=== PATIENT | female | born 1985 | race Caucasian/White ===

== ENCOUNTER 2022-01-31 03:15 | Inpatient (IN) | payer MEDICAID ==
[~2022-01-31] VITALS: Ht 154.9 cm; Wt 57.0 kg
[2022-01-31 03:39] LABS: BASOPHILS % (AUTO) 0.5 % (0.0-2.0); EOSINOPHILS % (AUTO) 1.8 % (1.0-6.0); HEMATOCRIT 35.6 % (36-46); HEMOGLOBIN 11.7 g/dL (12.0-16.0); LYMPHOCYTES # (AUTO) 2.1 K/uL (1.0-4.8); LYMPHOCYTES % (AUTO) 24.5 % (22.0-44.0); MEAN CORPUSCULAR HEMOGLOBIN 25.9 pg (26.0-34.0); MEAN CORPUSCULAR HGB CONC 32.9 G/dL (31.0-37.0); MEAN CORPUSCULAR VOLUME 79 fL (80-100); MONOCYTES # (AUTO) 0.7 K/uL (0.1-1.0); NEUTROPHILS # (AUTO) 5.5 K/uL (1.8-7.7); NEUTROPHILS % (AUTO) 65.2 % (40.0-70.0); PLATELET COUNT (AUTO) 313 K/uL (150-450); RED BLOOD CELL COUNT(AUTO) 4.52 MIL/uL (4.00-5.20)
[2022-01-31 03:44] LABS: APPEARANCE,URINE CLEAR (CLEAR); BILIRUBIN,URINE NEGATIVE (NEGATIVE); GLUCOSE, URINE (UA) NEGATIVE (NEGATIVE); KETONES,URINE NEGATIVE (NEGATIVE); LEUKOCYTE ESTERASE ,URINE NEGATIVE (NEGATIVE); NITRATE,URINE NEGATIVE (NEGATIVE); OCCULT BLOOD,URINE LARGE (NEGATIVE); PH,URINE 7.5 (5.0-8.0); PROTEIN,URINE NEGATIVE (NEGATIVE); SPECIFIC GRAVITIY, URINE 1.009 (1.003-1.030); UROBILINOGEN,URINE <=1.0 mg/dL (<=1.0)
[2022-01-31 03:48] LABS: ANION GAP 9 mmol/L (8-16); CALCIUM, TOTAL 8.6 mg/dL (8.8-10.5); CARBON DIOXIDE 28 mmol/L (22-29); CHLORIDE 101 mmol/L (98-107); CREATININE 0.71 mg/dL (0.60-1.30); GLOMERULAR FILTR. RATE CALC > 60 mL/min (>60); GLUCOSE,RANDOM 145 mg/dL (70-110); POTASSIUM 3.6 mmol/L (3.5-5.1); SODIUM SERUM 138 mmol/L (136-145); UREA NITROGEN, BLOOD 9 mg/dL (7-18)
[2022-01-31 03:53] LABS: BACTERIA,URINE None Seen /HPF (None Seen); RBC,URINE 0-2 /HPF (0-2); SQUAMOUS EPITHELIAL CELL,UR Few /LPF (None Seen); WBC,URINE None Seen /HPF (0-5)
[2022-01-31 04:01] LABS: ALBUMIN 3.5 g/dL (3.4-5.0); ALKALINE PHOSPHATASE 56 U/L (46-116); ASPARTATE AMINOTRANSFERASE 13 U/L (15-37); BILIRUBIN,TOTAL 0.2 mg/dL (0.1-1.0); HCG,QUANTITATIVE < 1 mIU/mL (0-6); LIPASE 131 U/L (73-393); TOTAL PROTEIN, SERUM 7.3 g/dL (6.4-8.2)
[2022-01-31 04:12] LABS: ALANINE AMINOTRANSFERASE 21 U/L (12-78)
[2022-01-31] MEDS ORDERED: ONDANSETRON HCL 4 MG/2 ML VIAL IVP ONE (04:15)
[2022-01-31] MEDS ORDERED: KETOROLAC TROMETHAMINE 30 MG/ML VIAL IVP ONE (04:15)
[2022-01-31] MEDS ORDERED: SODIUM CHLORIDE 0.9% 100 ML ONE (05:22)
[2022-01-31] MEDS ORDERED: IOHEXOL 350 MG/ML 100 ML VIAL ONE (05:23)
[2022-01-31] MEDS ORDERED: PIPERACILLIN SODIUM/TAZOBACTAM 4.5 GM in DEXTROSE 5%-WATER 100 ML IV ONE (11:15)
[2022-01-31 11:57] LABS: COVID AG,FIA SOURCE NASAL SWAB
[2022-01-31] MEDS ORDERED: MAGNESIUM HYDROXIDE SUSPENSION 30 ML UDCUP PO PRN (13:30)
[2022-01-31] MEDS ORDERED: HYDROCODONE/ACETAMINOPHEN 5-325 MG TABLET PO PRN (13:30)
[2022-01-31] MEDS ORDERED: MORPHINE SULFATE 2 MG/ML SYRINGE IVP PRN (13:30)
[2022-01-31] MEDS ORDERED: ZOLPIDEM TARTRATE 5 MG TABLET PO PRN (13:30)
[2022-01-31] MEDS ORDERED: SODIUM CHLORIDE 0.9% 1,000 ML IV ONE (13:30)
[2022-01-31] MEDS ORDERED: BISACODYL 10 MG RECTAL RECTAL SUPPOSITORY PR PRN (13:30)
[2022-01-31] MEDS ORDERED: ACETAMINOPHEN 325 MG TABLET PO PRN (13:30)
[2022-01-31] MEDS: HEPARIN SODIUM,PORCINE 5,000 UNITS/ML VIAL SQ SCH (15:08)
[2022-01-31] MEDS: PIPERACILLIN/TAZO 3.375 GM/D5W 50 ML IV SCH (17:45)
[2022-01-31] MEDS: DOCUSATE SODIUM 100 MG CAPSULE PO SCH (21:00)
[2022-01-31 21:23] VITALS: BP 106/68
[2022-01-31] MEDS: DEXTROSE 5%-LACTATED RINGERS 1,000 ML IV SCH (22:18)
[2022-02-01] VITALS (8 sets, daily range): BP systolic 89–107; BP diastolic 43–69
[2022-02-01] MEDS: HEPARIN SODIUM,PORCINE 5,000 UNITS/ML VIAL SQ SCH ×3 (00:15→16:00)
[2022-02-01] MEDS: PIPERACILLIN/TAZO 3.375 GM/D5W 50 ML IV SCH ×4 (00:16→18:23)
[2022-02-01 08:12] LABS: BASOPHILS % (AUTO) 1.3 % (0.0-2.0); EOSINOPHILS % (AUTO) 1.9 % (1.0-6.0); HEMATOCRIT 34.2 % (36-46); HEMOGLOBIN 11.2 g/dL (12.0-16.0); LYMPHOCYTES # (AUTO) 1.9 K/uL (1.0-4.8); LYMPHOCYTES % (AUTO) 31.3 % (22.0-44.0); MEAN CORPUSCULAR HEMOGLOBIN 26.1 pg (26.0-34.0); MEAN CORPUSCULAR HGB CONC 32.9 G/dL (31.0-37.0); MEAN CORPUSCULAR VOLUME 80 fL (80-100); MONOCYTES # (AUTO) 0.6 K/uL (0.1-1.0); MONOCYTES % (AUTO) 10.4 % (2.0-9.0); NEUTROPHILS # (AUTO) 3.3 K/uL (1.8-7.7); NEUTROPHILS % (AUTO) 55.1 % (40.0-70.0); PLATELET COUNT (AUTO) 260 K/uL (150-450)
[2022-02-01 08:26] LABS: ALANINE AMINOTRANSFERASE 18 U/L (12-78); ALKALINE PHOSPHATASE 42 U/L (46-116); ANION GAP 6 mmol/L (8-16); ASPARTATE AMINOTRANSFERASE 11 U/L (15-37); BILIRUBIN,TOTAL 0.2 mg/dL (0.1-1.0); CALCIUM, TOTAL 8.1 mg/dL (8.8-10.5); CARBON DIOXIDE 25 mmol/L (22-29); CHLORIDE 105 mmol/L (98-107); GLOMERULAR FILTR. RATE CALC > 60 mL/min (>60); GLUCOSE,RANDOM 103 mg/dL (70-110); POTASSIUM 3.8 mmol/L (3.5-5.1); SODIUM SERUM 136 mmol/L (136-145); TOTAL PROTEIN, SERUM 6.5 g/dL (6.4-8.2); UREA NITROGEN, BLOOD 9 mg/dL (7-18)
[2022-02-01] MEDS ORDERED: SODIUM CHLORIDE 0.9% 500 ML IV ONE (08:30)
[2022-02-01] MEDS: DOCUSATE SODIUM 100 MG CAPSULE PO SCH ×2 (09:00→20:53)
[2022-02-01] MEDS: PANTOPRAZOLE SODIUM 40 MG DR TABLET PO SCH (09:00)
[2022-02-01] MEDS: DEXTROSE 5%-LACTATED RINGERS 1,000 ML IV SCH (12:45)
[2022-02-01] MEDS ORDERED: SODIUM CHLORIDE 0.9% 0 ML ONE (13:44)
[2022-02-01] MEDS ORDERED: SODIUM CL IRRIG SOLN BAG 3,000 ML IRRIG ONE (13:48)
[2022-02-01] MEDS ORDERED: MEPERIDINE-PF 25 MG/ML VIAL IVP PRN (15:30)
[2022-02-01] MEDS ORDERED: HYDROmorphone 2 MG/ML VIAL IVP PRN (15:30)
[2022-02-01] MEDS ORDERED: FentaNYL CITRATE PF 100 MCG/2 ML VIAL IVP PRN (15:30)
[2022-02-01] MEDS ORDERED: MEPERIDINE-PF 25 MG/ML VIAL ONE (16:38)
[2022-02-01] MEDS: ACETAMINOPHEN 500 MG TABLET PO SCH (18:23)
[2022-02-01] MEDS: ONDANSETRON HCL 4 MG/2 ML VIAL IVP PRN (18:47)
[2022-02-01] MEDS: FAMOTIDINE 20 MG TABLET PO SCH (20:53)
[2022-02-01] MEDS: IBUPROFEN 200 MG TABLET PO SCH (20:53)
[2022-02-01] MEDS: HYDROCODONE/ACETAMINOPHEN 5-325 MG TABLET PO PRN (22:37)
[2022-02-02] MEDS: ACETAMINOPHEN 500 MG TABLET PO SCH ×4 (00:19→17:28)
[2022-02-02] MEDS: HEPARIN SODIUM,PORCINE 5,000 UNITS/ML VIAL SQ SCH ×3 (00:20→17:29)
[2022-02-02] MEDS: PIPERACILLIN/TAZO 3.375 GM/D5W 50 ML IV SCH ×4 (00:20→17:29)
[2022-02-02 05:24] VITALS: BP 123/49
[2022-02-02] MEDS: HYDROCODONE/ACETAMINOPHEN 5-325 MG TABLET PO PRN (05:55)
[2022-02-02] MEDS ORDERED: ONDANSETRON HCL 4 MG/2 ML VIAL IVP ONE (06:31)
[2022-02-02] MEDS ORDERED: PROPOFOL 1% 20 ML VIAL IVP ONE (06:31)
[2022-02-02] MEDS ORDERED: METOCLOPRAMIDE HCL 5 MG/ML 2 ML VIAL IVP ONE (06:31)
[2022-02-02] MEDS ORDERED: LIDOCAINE/PF 2% 5 ML SYRINGE IVP ONE (06:31)
[2022-02-02] MEDS ORDERED: GLYCOPYRROLATE 0.2 MG/ML VIAL IM ONE (06:31)
[2022-02-02] MEDS ORDERED: MIDAZOLAM HCL 2 MG/2 ML VIAL IVP ONE (06:31)
[2022-02-02] MEDS ORDERED: FentaNYL CITRATE PF 100 MCG/2 ML VIAL IVP ONE (06:31)
[2022-02-02] MEDS ORDERED: NEOSTIGMINE METHYLSULFATE 1 MG/ML 10 ML VIAL IVP ONE (06:31)
[2022-02-02] MEDS ORDERED: ROCURONIUM BROMIDE 10 MG/ML 5 ML VIAL IVP ONE (06:31)
[2022-02-02] MEDS ORDERED: DEXAMETHASONE SOD PHOS 4 MG/ML VIAL IVP ONE (06:31)
[2022-02-02 07:11] LABS: BASOPHILS % (AUTO) 0.5 % (0.0-2.0); EOSINOPHILS % (AUTO) 0.1 % (1.0-6.0); HEMATOCRIT 36.6 % (36-46); HEMOGLOBIN 11.8 g/dL (12.0-16.0); LYMPHOCYTES # (AUTO) 1.2 K/uL (1.0-4.8); LYMPHOCYTES % (AUTO) 12.5 % (22.0-44.0); MEAN CORPUSCULAR HEMOGLOBIN 25.8 pg (26.0-34.0); MEAN CORPUSCULAR HGB CONC 32.3 G/dL (31.0-37.0); MEAN CORPUSCULAR VOLUME 80 fL (80-100); MONOCYTES # (AUTO) 0.6 K/uL (0.1-1.0); MONOCYTES % (AUTO) 6.2 % (2.0-9.0); NEUTROPHILS # (AUTO) 7.5 K/uL (1.8-7.7); NEUTROPHILS % (AUTO) 80.7 % (40.0-70.0); PLATELET COUNT (AUTO) 310 K/uL (150-450); RED BLOOD CELL COUNT(AUTO) 4.58 MIL/uL (4.00-5.20); RED CELL DISTRIBUTION WIDTH 16.8 % (11.5-14.5)
[2022-02-02 07:22] VITALS: BP 101/69
[2022-02-02 07:27] LABS: ALANINE AMINOTRANSFERASE 171 U/L (12-78); ALBUMIN 3.4 g/dL (3.4-5.0); ALKALINE PHOSPHATASE 95 U/L (46-116); ANION GAP 12 mmol/L (8-16); ASPARTATE AMINOTRANSFERASE 120 U/L (15-37); BILIRUBIN,TOTAL 0.2 mg/dL (0.1-1.0); CALCIUM, TOTAL 8.7 mg/dL (8.8-10.5); CARBON DIOXIDE 23 mmol/L (22-29); CHLORIDE 103 mmol/L (98-107); CREATININE 0.77 mg/dL (0.60-1.30); GLOMERULAR FILTR. RATE CALC > 60 mL/min (>60); GLUCOSE,RANDOM 162 mg/dL (70-110); POTASSIUM 3.6 mmol/L (3.5-5.1); SODIUM SERUM 138 mmol/L (136-145); TOTAL PROTEIN, SERUM 7.4 g/dL (6.4-8.2); UREA NITROGEN, BLOOD 4 mg/dL (7-18)
[2022-02-02] MEDS: OXYGEN THERAPY IH SCH (08:00)
[2022-02-02] MEDS: IBUPROFEN 200 MG TABLET PO SCH ×3 (08:26→21:00)
[2022-02-02] MEDS: FAMOTIDINE 20 MG TABLET PO SCH ×2 (08:26→21:15)
[2022-02-02] MEDS: PANTOPRAZOLE SODIUM 40 MG DR TABLET PO SCH (08:26)
[2022-02-02] MEDS: DOCUSATE SODIUM 100 MG CAPSULE PO SCH ×2 (08:26→21:14)
[2022-02-02] MEDS: MORPHINE SULFATE 4 MG/ML SYRINGE IVP PRN ×2 (09:07→15:01)
[2022-02-02] MEDS: DEXTROSE 5%-LACTATED RINGERS 1,000 ML IV SCH ×3 (09:08→23:30)
[2022-02-02 14:54] VITALS: BP 105/62
[2022-02-02] MEDS: ONDANSETRON HCL 4 MG/2 ML VIAL IVP PRN (17:50)
[2022-02-02 19:30] VITALS: BP 111/69
[2022-02-02] MEDS: HYDROmorphone 2 MG/ML VIAL IVP PRN (21:25)
[2022-02-03 05:00] VITALS: BP 106/66
[2022-02-03] MEDS: ACETAMINOPHEN 500 MG TABLET PO SCH ×4 (06:19→17:40)
[2022-02-03] MEDS: PIPERACILLIN/TAZO 3.375 GM/D5W 50 ML IV SCH ×4 (06:19→17:41)
[2022-02-03 07:08] LABS: BASOPHILS % (AUTO) 0.7 % (0.0-2.0); EOSINOPHILS % (AUTO) 0.7 % (1.0-6.0); HEMATOCRIT 34.1 % (36-46); LYMPHOCYTES # (AUTO) 2.2 K/uL (1.0-4.8); LYMPHOCYTES % (AUTO) 37.9 % (22.0-44.0); MEAN CORPUSCULAR HEMOGLOBIN 25.9 pg (26.0-34.0); MEAN CORPUSCULAR HGB CONC 32.4 G/dL (31.0-37.0); MEAN CORPUSCULAR VOLUME 80 fL (80-100); MONOCYTES # (AUTO) 0.5 K/uL (0.1-1.0); MONOCYTES % (AUTO) 8.6 % (2.0-9.0); NEUTROPHILS # (AUTO) 3.1 K/uL (1.8-7.7); NEUTROPHILS % (AUTO) 52.1 % (40.0-70.0); PLATELET COUNT (AUTO) 312 K/uL (150-450); RED BLOOD CELL COUNT(AUTO) 4.26 MIL/uL (4.00-5.20); RED CELL DISTRIBUTION WIDTH 16.2 % (11.5-14.5)
[2022-02-03 07:33] LABS: ALANINE AMINOTRANSFERASE 350 U/L (12-78); ALBUMIN 3.2 g/dL (3.4-5.0); ALKALINE PHOSPHATASE 106 U/L (46-116); ANION GAP 7 mmol/L (8-16); ASPARTATE AMINOTRANSFERASE 232 U/L (15-37); BILIRUBIN,TOTAL 0.2 mg/dL (0.1-1.0); CALCIUM, TOTAL 8.4 mg/dL (8.8-10.5); CARBON DIOXIDE 26 mmol/L (22-29); CHLORIDE 104 mmol/L (98-107); CREATININE 0.72 mg/dL (0.60-1.30); GLOMERULAR FILTR. RATE CALC > 60 mL/min (>60); GLUCOSE,RANDOM 94 mg/dL (70-110); POTASSIUM 3.4 mmol/L (3.5-5.1); SODIUM SERUM 137 mmol/L (136-145); TOTAL PROTEIN, SERUM 6.9 g/dL (6.4-8.2); UREA NITROGEN, BLOOD 6 mg/dL (7-18)
[2022-02-03 07:40] VITALS: BP 109/72
[2022-02-03] MEDS: ONDANSETRON HCL 4 MG/2 ML VIAL IVP PRN (07:46)
[2022-02-03] MEDS: HEPARIN SODIUM,PORCINE 5,000 UNITS/ML VIAL SQ SCH ×3 (08:00→17:41)
[2022-02-03] MEDS: OXYGEN THERAPY IH SCH (08:00)
[2022-02-03] MEDS: DOCUSATE SODIUM 100 MG CAPSULE PO SCH ×2 (09:00→22:40)
[2022-02-03] MEDS: FAMOTIDINE 20 MG TABLET PO SCH ×2 (09:00→22:41)
[2022-02-03] MEDS: PANTOPRAZOLE SODIUM 40 MG DR TABLET PO SCH (09:00)
[2022-02-03] MEDS: IBUPROFEN 200 MG TABLET PO SCH ×3 (09:00→22:39)
[2022-02-03] MEDS ORDERED: BISACODYL 10 MG RECTAL RECTAL SUPPOSITORY PR ONE (10:15)
[2022-02-03] MEDS: SIMETHICONE 80 MG CHEWABLE TABLET CHEW SCH ×3 (12:35→22:40)
[2022-02-03] MEDS: DEXTROSE 5%-LACTATED RINGERS 1,000 ML IV SCH (12:35)
[2022-02-03 15:50] VITALS: BP 117/74
[2022-02-03] MEDS: POTASSIUM CHL 10 MEQ/WATER 50 ML IV PRN (16:13)
[2022-02-03 19:30] VITALS: BP 125/60
[2022-02-04] MEDS: PIPERACILLIN/TAZO 3.375 GM/D5W 50 ML IV SCH ×4 (01:13→17:49)
[2022-02-04] MEDS: HEPARIN SODIUM,PORCINE 5,000 UNITS/ML VIAL SQ SCH ×3 (01:14→15:35)
[2022-02-04] MEDS: ACETAMINOPHEN 500 MG TABLET PO SCH ×4 (01:14→17:49)
[2022-02-04 05:06] VITALS: BP 99/68
[2022-02-04 07:01] LABS: ALANINE AMINOTRANSFERASE 1229 U/L (12-78); ALBUMIN 2.9 g/dL (3.4-5.0); ALKALINE PHOSPHATASE 189 U/L (46-116); AMYLASE 31 U/L (25-115); ANION GAP 6 mmol/L (8-16); ASPARTATE AMINOTRANSFERASE 890 U/L (15-37); CALCIUM, TOTAL 8.5 mg/dL (8.8-10.5); CARBON DIOXIDE 28 mmol/L (22-29); CHLORIDE 107 mmol/L (98-107); CREATININE 0.67 mg/dL (0.60-1.30); GLOMERULAR FILTR. RATE CALC > 60 mL/min (>60); GLUCOSE,RANDOM 92 mg/dL (70-110); LIPASE 77 U/L (73-393); POTASSIUM 3.5 mmol/L (3.5-5.1); SODIUM SERUM 141 mmol/L (136-145); TOTAL PROTEIN, SERUM 6.2 g/dL (6.4-8.2); UREA NITROGEN, BLOOD 5 mg/dL (7-18)
[2022-02-04] MEDS: SIMETHICONE 80 MG CHEWABLE TABLET CHEW SCH ×4 (07:11→21:42)
[2022-02-04] MEDS: HYDROmorphone 2 MG/ML VIAL IVP PRN ×2 (07:50→21:40)
[2022-02-04 07:59] VITALS: BP 105/69
[2022-02-04] MEDS: OXYGEN THERAPY IH SCH ×2 (08:00→19:31)
[2022-02-04] MEDS: PANTOPRAZOLE SODIUM 40 MG DR TABLET PO SCH (08:37)
[2022-02-04] MEDS: IBUPROFEN 200 MG TABLET PO SCH ×3 (08:50→21:42)
[2022-02-04] MEDS: DOCUSATE SODIUM 100 MG CAPSULE PO SCH ×2 (08:50→21:42)
[2022-02-04] MEDS: FAMOTIDINE 20 MG TABLET PO SCH ×2 (08:51→21:41)
[2022-02-04] MEDS ORDERED: GADOTERATE MEGLUMINE 10 MMOL/20 ML VIAL IVP ONE (12:00)
[2022-02-04] MEDS: DEXTROSE 5%-LACTATED RINGERS 1,000 ML IV SCH ×2 (14:20→15:35)
[2022-02-04 19:15] VITALS: BP 113/71
[2022-02-04] MEDS: ONDANSETRON HCL 4 MG/2 ML VIAL IVP PRN (19:50)
[2022-02-04] MEDS: HYDROCODONE/ACETAMINOPHEN 5-325 MG TABLET PO PRN (19:56)
[2022-02-05] MEDS: ACETAMINOPHEN 500 MG TABLET PO SCH ×5 (00:54→23:19)
[2022-02-05] MEDS: PIPERACILLIN/TAZO 3.375 GM/D5W 50 ML IV SCH ×5 (00:54→23:19)
[2022-02-05] MEDS: HEPARIN SODIUM,PORCINE 5,000 UNITS/ML VIAL SQ SCH ×4 (00:55→23:21)
[2022-02-05] MEDS: DEXTROSE 5%-LACTATED RINGERS 1,000 ML IV SCH ×2 (02:15→15:16)
[2022-02-05 04:25] VITALS: BP 108/71
[2022-02-05] MEDS: HYDROCODONE/ACETAMINOPHEN 5-325 MG TABLET PO PRN (04:32)
[2022-02-05] MEDS: SIMETHICONE 80 MG CHEWABLE TABLET CHEW SCH ×4 (06:07→21:27)
[2022-02-05 06:50] LABS: BASOPHILS % (AUTO) 1.3 % (0.0-2.0); EOSINOPHILS % (AUTO) 2.1 % (1.0-6.0); HEMATOCRIT 32.1 % (36-46); HEMOGLOBIN 10.5 g/dL (12.0-16.0); LYMPHOCYTES # (AUTO) 1.3 K/uL (1.0-4.8); LYMPHOCYTES % (AUTO) 35.7 % (22.0-44.0); MEAN CORPUSCULAR HGB CONC 32.6 G/dL (31.0-37.0); MEAN CORPUSCULAR VOLUME 80 fL (80-100); MONOCYTES # (AUTO) 0.4 K/uL (0.1-1.0); NEUTROPHILS # (AUTO) 1.9 K/uL (1.8-7.7); NEUTROPHILS % (AUTO) 49.9 % (40.0-70.0); PLATELET COUNT (AUTO) 272 K/uL (150-450); RED BLOOD CELL COUNT(AUTO) 4.03 MIL/uL (4.00-5.20); RED CELL DISTRIBUTION WIDTH 16.7 % (11.5-14.5)
[2022-02-05 06:57] LABS: PROTHROMBIN TIME 10.4 SEC (9.4-11.6)
[2022-02-05 07:32] LABS: ALANINE AMINOTRANSFERASE 1070 U/L (12-78); ALBUMIN 2.8 g/dL (3.4-5.0); ALKALINE PHOSPHATASE 184 U/L (46-116); ANION GAP 12 mmol/L (8-16); ASPARTATE AMINOTRANSFERASE 562 U/L (15-37); BILIRUBIN,TOTAL 1.3 mg/dL (0.1-1.0); CALCIUM, TOTAL 8.3 mg/dL (8.8-10.5); CARBON DIOXIDE 22 mmol/L (22-29); CHLORIDE 105 mmol/L (98-107); CREATININE 0.71 mg/dL (0.60-1.30); GLOMERULAR FILTR. RATE CALC > 60 mL/min (>60); GLUCOSE,RANDOM 109 mg/dL (70-110); POTASSIUM 3.3 mmol/L (3.5-5.1); SODIUM SERUM 139 mmol/L (136-145); TOTAL PROTEIN, SERUM 6.1 g/dL (6.4-8.2); UREA NITROGEN, BLOOD 6 mg/dL (7-18)
[2022-02-05] MEDS: OXYGEN THERAPY IH SCH ×2 (08:00→20:00)
[2022-02-05 08:15] VITALS: BP 100/72
[2022-02-05] MEDS: PANTOPRAZOLE SODIUM 40 MG DR TABLET PO SCH (08:20)
[2022-02-05] MEDS: IBUPROFEN 200 MG TABLET PO SCH ×3 (08:20→21:27)
[2022-02-05] MEDS: FAMOTIDINE 20 MG TABLET PO SCH ×2 (08:20→21:27)
[2022-02-05] MEDS: DOCUSATE SODIUM 100 MG CAPSULE PO SCH ×2 (08:20→21:27)
[2022-02-05] MEDS: POTASSIUM CHLORIDE 20 MEQ ER TABLET PO PRN (08:23)
[2022-02-05 09:03] VITALS: BP 100/72
[2022-02-05] MEDS: ONDANSETRON HCL 4 MG/2 ML VIAL IVP PRN ×2 (11:18→17:42)
[2022-02-05] MEDS: HYDROmorphone 2 MG/ML VIAL IVP PRN (11:19)
[2022-02-05 17:18] VITALS: BP 116/84
[2022-02-05 20:18] VITALS: BP 120/76
[2022-02-06 05:23] VITALS: BP 122/68
[2022-02-06] MEDS: SIMETHICONE 80 MG CHEWABLE TABLET CHEW SCH ×4 (05:56→20:43)
[2022-02-06] MEDS: PIPERACILLIN/TAZO 3.375 GM/D5W 50 ML IV SCH ×3 (05:56→17:31)
[2022-02-06] MEDS: ACETAMINOPHEN 500 MG TABLET PO SCH ×3 (05:56→18:00)
[2022-02-06] MEDS: DEXTROSE 5%-LACTATED RINGERS 1,000 ML IV SCH ×2 (05:59→15:38)
[2022-02-06 07:40] LABS: BASOPHILS % (AUTO) 1.1 % (0.0-2.0); EOSINOPHILS % (AUTO) 2.6 % (1.0-6.0); HEMATOCRIT 34.6 % (36-46); HEMOGLOBIN 11.2 g/dL (12.0-16.0); LYMPHOCYTES # (AUTO) 1.3 K/uL (1.0-4.8); LYMPHOCYTES % (AUTO) 31.6 % (22.0-44.0); MEAN CORPUSCULAR HEMOGLOBIN 25.7 pg (26.0-34.0); MEAN CORPUSCULAR HGB CONC 32.5 G/dL (31.0-37.0); MEAN CORPUSCULAR VOLUME 79 fL (80-100); MONOCYTES # (AUTO) 0.5 K/uL (0.1-1.0); MONOCYTES % (AUTO) 12.3 % (2.0-9.0); NEUTROPHILS # (AUTO) 2.2 K/uL (1.8-7.7); NEUTROPHILS % (AUTO) 52.4 % (40.0-70.0); PLATELET COUNT (AUTO) 301 K/uL (150-450); RED BLOOD CELL COUNT(AUTO) 4.37 MIL/uL (4.00-5.20); RED CELL DISTRIBUTION WIDTH 16.6 % (11.5-14.5)
[2022-02-06 07:58] LABS: ALANINE AMINOTRANSFERASE 948 U/L (12-78); ALBUMIN 2.9 g/dL (3.4-5.0); ALKALINE PHOSPHATASE 200 U/L (46-116); ANION GAP 9 mmol/L (8-16); ASPARTATE AMINOTRANSFERASE 265 U/L (15-37); BILIRUBIN,TOTAL 1.1 mg/dL (0.1-1.0); CALCIUM, TOTAL 8.7 mg/dL (8.8-10.5); CARBON DIOXIDE 26 mmol/L (22-29); CHLORIDE 104 mmol/L (98-107); CREATININE 0.66 mg/dL (0.60-1.30); GLOMERULAR FILTR. RATE CALC > 60 mL/min (>60); GLUCOSE,RANDOM 113 mg/dL (70-110); POTASSIUM 3.3 mmol/L (3.5-5.1); SODIUM SERUM 139 mmol/L (136-145); TOTAL PROTEIN, SERUM 6.6 g/dL (6.4-8.2); UREA NITROGEN, BLOOD 4 mg/dL (7-18)
[2022-02-06] MEDS: OXYGEN THERAPY IH SCH ×2 (08:00→20:00)
[2022-02-06 08:30] VITALS: BP 113/71
[2022-02-06] MEDS: ONDANSETRON HCL 4 MG/2 ML VIAL IVP PRN ×2 (08:55→17:53)
[2022-02-06] MEDS: HEPARIN SODIUM,PORCINE 5,000 UNITS/ML VIAL SQ SCH ×2 (08:55→16:23)
[2022-02-06] MEDS: PANTOPRAZOLE SODIUM 40 MG DR TABLET PO SCH (08:56)
[2022-02-06] MEDS: DOCUSATE SODIUM 100 MG CAPSULE PO SCH ×2 (08:56→20:43)
[2022-02-06] MEDS: FAMOTIDINE 20 MG TABLET PO SCH ×2 (08:56→20:43)
[2022-02-06] MEDS: IBUPROFEN 200 MG TABLET PO SCH ×3 (08:56→20:43)
[2022-02-06] MEDS ORDERED: METOCLOPRAMIDE HCL 5 MG/ML 2 ML VIAL IVP PRN (11:30)
[2022-02-06] MEDS ORDERED: BARIUM SULFATE 0.1% SUSPENSION 450 ML BOTTLE ONE (11:41)
[2022-02-06] MEDS ORDERED: SODIUM CHLORIDE 0.9% 100 ML ONE (11:51)
[2022-02-06] MEDS ORDERED: IOHEXOL 350 MG/ML 100 ML VIAL ONE (11:51)
[2022-02-06 15:15] VITALS: BP 116/54
[2022-02-06] MEDS: POTASSIUM CHL 10 MEQ/WATER 50 ML IV PRN ×3 (15:38→21:46)
[2022-02-06] MEDS: POLYETHYLENE GLYCOL 3350 17 GM PACKET PO SCH (18:00)
[2022-02-06] MEDS ORDERED: DOCUSATE SODIUM 100 MG/10 ML LIQUID UDCUP PO SCH (21:00)
[2022-02-06 21:44] VITALS: BP 112/53
[2022-02-07] MEDS: HEPARIN SODIUM,PORCINE 5,000 UNITS/ML VIAL SQ SCH ×3 (00:06→15:52)
[2022-02-07] MEDS: PIPERACILLIN/TAZO 3.375 GM/D5W 50 ML IV SCH ×3 (00:06→11:06)
[2022-02-07] MEDS: ACETAMINOPHEN 500 MG TABLET PO SCH ×4 (00:07→17:49)
[2022-02-07] MEDS: SIMETHICONE 80 MG CHEWABLE TABLET CHEW SCH ×4 (06:00→21:30)
[2022-02-07 06:49] VITALS: BP 107/62
[2022-02-07] MEDS: DEXTROSE 5%-LACTATED RINGERS 1,000 ML IV SCH ×2 (07:00→16:30)
[2022-02-07] MEDS: OXYGEN THERAPY IH SCH ×2 (08:00→20:00)
[2022-02-07] MEDS: DOCUSATE SODIUM 100 MG CAPSULE PO SCH ×2 (08:12→21:30)
[2022-02-07] MEDS: IBUPROFEN 200 MG TABLET PO SCH ×4 (08:13→21:30)
[2022-02-07] MEDS: FAMOTIDINE 20 MG TABLET PO SCH ×2 (08:14→21:30)
[2022-02-07 08:16] VITALS: BP 109/69
[2022-02-07 08:16] LABS: ALANINE AMINOTRANSFERASE 795 U/L (12-78); ALBUMIN 2.9 g/dL (3.4-5.0); ALKALINE PHOSPHATASE 217 U/L (46-116); ANION GAP 11 mmol/L (8-16); ASPARTATE AMINOTRANSFERASE 199 U/L (15-37); BILIRUBIN,TOTAL 0.8 mg/dL (0.1-1.0); CALCIUM, TOTAL 8.8 mg/dL (8.8-10.5); CARBON DIOXIDE 24 mmol/L (22-29); CHLORIDE 103 mmol/L (98-107); CREATININE 0.63 mg/dL (0.60-1.30); GLOMERULAR FILTR. RATE CALC > 60 mL/min (>60); GLUCOSE,RANDOM 104 mg/dL (70-110); POTASSIUM 3.4 mmol/L (3.5-5.1); SODIUM SERUM 138 mmol/L (136-145); TOTAL PROTEIN, SERUM 6.8 g/dL (6.4-8.2); UREA NITROGEN, BLOOD 4 mg/dL (7-18)
[2022-02-07] MEDS: PANTOPRAZOLE SODIUM 40 MG DR TABLET PO SCH (08:16)
[2022-02-07] MEDS: POLYETHYLENE GLYCOL 3350 17 GM PACKET PO SCH (08:18)
[2022-02-07 08:50] LABS: BASOPHILS % (AUTO) 1.1 % (0.0-2.0); EOSINOPHILS % (AUTO) 2.3 % (1.0-6.0); HEMATOCRIT 36.9 % (36-46); HEMOGLOBIN 11.8 g/dL (12.0-16.0); LYMPHOCYTES # (AUTO) 1.5 K/uL (1.0-4.8); LYMPHOCYTES % (AUTO) 37.4 % (22.0-44.0); MEAN CORPUSCULAR HEMOGLOBIN 25.3 pg (26.0-34.0); MEAN CORPUSCULAR HGB CONC 31.9 G/dL (31.0-37.0); MEAN CORPUSCULAR VOLUME 79 fL (80-100); MONOCYTES # (AUTO) 0.6 K/uL (0.1-1.0); MONOCYTES % (AUTO) 14.2 % (2.0-9.0); NEUTROPHILS # (AUTO) 1.8 K/uL (1.8-7.7); PLATELET COUNT (AUTO) 322 K/uL (150-450); RED BLOOD CELL COUNT(AUTO) 4.66 MIL/uL (4.00-5.20); RED CELL DISTRIBUTION WIDTH 16.5 % (11.5-14.5)
[2022-02-07] MEDS: POTASSIUM CHLORIDE 20 MEQ ER TABLET PO PRN (11:05)
[2022-02-07 16:08] VITALS: BP 106/67
[2022-02-07 19:40] VITALS: BP 99/76
[2022-02-08] MEDS: ACETAMINOPHEN 500 MG TABLET PO SCH ×4 (00:21→18:00)
[2022-02-08] MEDS: HEPARIN SODIUM,PORCINE 5,000 UNITS/ML VIAL SQ SCH ×3 (00:22→16:00)
[2022-02-08 04:00] VITALS: BP 87/59
[2022-02-08 06:49] LABS: BASOPHILS % (AUTO) 1.1 % (0.0-2.0); EOSINOPHILS % (AUTO) 2.1 % (1.0-6.0); HEMATOCRIT 37.7 % (36-46); HEMOGLOBIN 12.2 g/dL (12.0-16.0); LYMPHOCYTES # (AUTO) 1.6 K/uL (1.0-4.8); LYMPHOCYTES % (AUTO) 30.9 % (22.0-44.0); MEAN CORPUSCULAR HEMOGLOBIN 25.8 pg (26.0-34.0); MEAN CORPUSCULAR HGB CONC 32.4 G/dL (31.0-37.0); MEAN CORPUSCULAR VOLUME 80 fL (80-100); MONOCYTES # (AUTO) 0.7 K/uL (0.1-1.0); MONOCYTES % (AUTO) 12.7 % (2.0-9.0); NEUTROPHILS # (AUTO) 2.8 K/uL (1.8-7.7); NEUTROPHILS % (AUTO) 53.2 % (40.0-70.0); PLATELET COUNT (AUTO) 339 K/uL (150-450); RED BLOOD CELL COUNT(AUTO) 4.74 MIL/uL (4.00-5.20); RED CELL DISTRIBUTION WIDTH 16.7 % (11.5-14.5)
[2022-02-08 07:11] LABS: ALANINE AMINOTRANSFERASE 788 U/L (12-78); ALBUMIN 3.2 g/dL (3.4-5.0); ALKALINE PHOSPHATASE 261 U/L (46-116); ANION GAP 9 mmol/L (8-16); ASPARTATE AMINOTRANSFERASE 222 U/L (15-37); BILIRUBIN,TOTAL 0.7 mg/dL (0.1-1.0); CALCIUM, TOTAL 9.2 mg/dL (8.8-10.5); CARBON DIOXIDE 26 mmol/L (22-29); CHLORIDE 102 mmol/L (98-107); CREATININE 0.59 mg/dL (0.60-1.30); GLOMERULAR FILTR. RATE CALC > 60 mL/min (>60); GLUCOSE,RANDOM 105 mg/dL (70-110); POTASSIUM 3.7 mmol/L (3.5-5.1); SODIUM SERUM 137 mmol/L (136-145); TOTAL PROTEIN, SERUM 7.3 g/dL (6.4-8.2); UREA NITROGEN, BLOOD 10 mg/dL (7-18)
[2022-02-08 07:39] VITALS: BP 96/55
[2022-02-08] MEDS: SIMETHICONE 80 MG CHEWABLE TABLET CHEW SCH ×3 (08:03→17:30)
[2022-02-08] MEDS: IBUPROFEN 200 MG TABLET PO SCH ×2 (08:04→16:00)
[2022-02-08] MEDS: POLYETHYLENE GLYCOL 3350 17 GM PACKET PO SCH (08:04)
[2022-02-08] MEDS: PANTOPRAZOLE SODIUM 40 MG DR TABLET PO SCH (08:04)
[2022-02-08] MEDS: FAMOTIDINE 20 MG TABLET PO SCH (08:04)
[2022-02-08] MEDS: DOCUSATE SODIUM 100 MG CAPSULE PO SCH (08:04)
[2022-02-08] MEDS: OXYGEN THERAPY IH SCH (08:11)
[2022-02-08] MEDS ORDERED: POLY17PO47 PO (10:52)
[2022-02-08] MEDS ORDERED: AMOX1TAB16 PO (10:56)
[2022-02-08 15:52] VITALS: BP 90/57
== END 2022-02-08 18:36 | disposition home or self-care (01) | DRG 263 ==
LOC: EMS 03:24 → 6S 13:23
PROVIDERS: ADMIT Internal Medicine; ATTEND Internal Medicine
PROC: 0FT44ZZ Resection of Gallbladder, Percutaneous Endoscopic Approach (ICD-10-PCS; principal; 2022-02-01 14:45)
DX: K80.13 Calculus of gallbladder with acute and chronic cholecystitis with obstruction (principal); Z20.822 Contact with and (suspected) exposure to COVID-19; Z79.899 Other long term (current) drug therapy
CPT/HCPCS: 74177; 74183; 76700; 80053; 81001; 82150; 83690; 84702; 85025; 85610; 87081; 88304; 99285; J0690; J1100; J1170; J1644; J1885; J2175; J2250; J2270; J2405; J2543; J2704; J2765; J3010; J3480; J3490; J7030; J7040; J7050; J7060; Q9967

== ENCOUNTER 2022-02-20 18:48 | Inpatient (IN) | payer MEDICAID ==
[~2022-02-20] VITALS: Ht 160 cm; Wt 65.9 kg
[~2022-02-20 18:48] MED LIST: AMOX1TAB16 PO; POLY17PO47 PO
[2022-02-20] MEDS ORDERED: MORPHINE SULFATE 2 MG/ML SYRINGE IVP ONE (19:15)
[2022-02-20] MEDS ORDERED: SODIUM CHLORIDE 0.9% 1,000 ML IV ONE (19:15)
[2022-02-20] MEDS ORDERED: ONDANSETRON HCL 4 MG/2 ML VIAL IVP ONE (19:15)
[2022-02-20 19:28] LABS: BASOPHILS % (AUTO) 0.6 % (0.0-2.0); EOSINOPHILS % (AUTO) 1.8 % (1.0-6.0); HEMATOCRIT 37.8 % (36-46); HEMOGLOBIN 12.4 g/dL (12.0-16.0); LYMPHOCYTES # (AUTO) 1.3 K/uL (1.0-4.8); LYMPHOCYTES % (AUTO) 24.7 % (22.0-44.0); MEAN CORPUSCULAR HEMOGLOBIN 26.9 pg (26.0-34.0); MEAN CORPUSCULAR HGB CONC 32.7 G/dL (31.0-37.0); MEAN CORPUSCULAR VOLUME 82 fL (80-100); MONOCYTES # (AUTO) 0.6 K/uL (0.1-1.0); MONOCYTES % (AUTO) 10.6 % (2.0-9.0); NEUTROPHILS # (AUTO) 3.4 K/uL (1.8-7.7); NEUTROPHILS % (AUTO) 62.3 % (40.0-70.0); PLATELET COUNT (AUTO) 380 K/uL (150-450); RED CELL DISTRIBUTION WIDTH 16.8 % (11.5-14.5)
[2022-02-20 19:37] LABS: ANION GAP 12 mmol/L (8-16); CALCIUM, TOTAL 9.3 mg/dL (8.8-10.5); CARBON DIOXIDE 25 mmol/L (22-29); CHLORIDE 100 mmol/L (98-107); CREATININE 0.75 mg/dL (0.60-1.30); GLOMERULAR FILTR. RATE CALC > 60 mL/min (>60); GLUCOSE,RANDOM 99 mg/dL (70-110); POTASSIUM 3.7 mmol/L (3.5-5.1); SODIUM SERUM 137 mmol/L (136-145); UREA NITROGEN, BLOOD 8 mg/dL (7-18)
[2022-02-20 19:48] LABS: ALANINE AMINOTRANSFERASE 1694 U/L (12-78); ALBUMIN 3.9 g/dL (3.4-5.0); ALKALINE PHOSPHATASE 987 U/L (46-116); ASPARTATE AMINOTRANSFERASE 940 U/L (15-37); BILIRUBIN,TOTAL 2.2 mg/dL (0.1-1.0); TOTAL PROTEIN, SERUM 8.4 g/dL (6.4-8.2)
[2022-02-20 19:58] LABS: LIPASE 8824 U/L (73-393)
[2022-02-20] MEDS ORDERED: IOHEXOL 350 MG/ML 100 ML VIAL ONE (20:05)
[2022-02-20] MEDS ORDERED: SODIUM CHLORIDE 0.9% 100 ML ONE (20:05)
[2022-02-21] MEDS ORDERED: MAGNESIUM HYDROXIDE SUSPENSION 30 ML UDCUP PO PRN (08:45)
[2022-02-21] MEDS ORDERED: ONDANSETRON HCL 4 MG/2 ML VIAL IVP PRN (08:45)
[2022-02-21] MEDS ORDERED: MORPHINE SULFATE 2 MG/ML SYRINGE IVP PRN ×2 (08:45→14:45)
[2022-02-21] MEDS ORDERED: ACETAMINOPHEN 325 MG TABLET PO PRN (08:45)
[2022-02-21 08:48] VITALS: BP 94/58
[2022-02-21] MEDS: DOCUSATE SODIUM 100 MG CAPSULE PO SCH ×2 (09:00→20:17)
[2022-02-21] MEDS: PANTOPRAZOLE SODIUM 40 MG/VIAL IVP SCH (09:20)
[2022-02-21] MEDS ORDERED: MEBROFENIN TC99M/MCL ISOTOPE 1 EA INJ INJ ONE (10:10)
[2022-02-21 11:02] LABS: COVID AG,FIA SOURCE NASAL SWAB
[2022-02-21] MEDS: SODIUM CHLORIDE 0.9% 1,000 ML IV SCH ×2 (11:34→20:17)
[2022-02-21 16:00] VITALS: BP 98/56
[2022-02-21] MEDS: HEPARIN SODIUM,PORCINE 5,000 UNITS/ML VIAL SQ SCH ×2 (16:01→23:29)
[2022-02-21 19:28] VITALS: BP 94/51
[2022-02-21 22:00] VITALS: BP 103/57
[2022-02-22 04:45] VITALS: BP 86/53
[2022-02-22 04:50] VITALS: BP 85/57
[2022-02-22 05:38] VITALS: BP 97/58
[2022-02-22] MEDS: SODIUM CHLORIDE 0.9% 1,000 ML IV SCH ×3 (07:02→22:41)
[2022-02-22 07:05] LABS: ALANINE AMINOTRANSFERASE 918 U/L (12-78); ALBUMIN 2.9 g/dL (3.4-5.0); ALKALINE PHOSPHATASE 638 U/L (46-116); ANION GAP 11 mmol/L (8-16); ASPARTATE AMINOTRANSFERASE 262 U/L (15-37); BILIRUBIN,TOTAL 1.1 mg/dL (0.1-1.0); CALCIUM, TOTAL 8.4 mg/dL (8.8-10.5); CARBON DIOXIDE 21 mmol/L (22-29); CHLORIDE 106 mmol/L (98-107); CREATININE 0.61 mg/dL (0.60-1.30); GLOMERULAR FILTR. RATE CALC > 60 mL/min (>60); GLUCOSE,RANDOM 53 mg/dL (70-110); LIPASE 210 U/L (73-393); POTASSIUM 3.9 mmol/L (3.5-5.1); SODIUM SERUM 138 mmol/L (136-145); TOTAL PROTEIN, SERUM 6.3 g/dL (6.4-8.2); UREA NITROGEN, BLOOD 7 mg/dL (7-18)
[2022-02-22 07:56] VITALS: BP 84/45
[2022-02-22] MEDS: HEPARIN SODIUM,PORCINE 5,000 UNITS/ML VIAL SQ SCH ×3 (08:29→23:33)
[2022-02-22] MEDS: PANTOPRAZOLE SODIUM 40 MG/VIAL IVP SCH (08:29)
[2022-02-22] MEDS: DOCUSATE SODIUM 100 MG CAPSULE PO SCH ×2 (08:30→20:57)
[2022-02-22] MEDS ORDERED: DEXTROSE 50%-WATER 25 GM/50 ML SYRINGE IVP ONE ×2 (08:59→09:00)
[2022-02-22 09:06] LABS: GLUCOMETER DEV NAME(LOC) 6N.2; GLUCOSE,POINT OF CARE 55 MG/DL (70-110)
[2022-02-22 14:46] LABS: GLUCOMETER DEV NAME(LOC) 6N.2; GLUCOSE,POINT OF CARE 117 MG/DL (70-110)
[2022-02-22 16:13] VITALS: BP 98/70
[2022-02-22 20:04] VITALS: BP 103/61
[2022-02-23 04:20] VITALS: BP 93/63
[2022-02-23 07:35] VITALS: BP 86/51
[2022-02-23] MEDS: HEPARIN SODIUM,PORCINE 5,000 UNITS/ML VIAL SQ SCH ×2 (08:45→15:22)
[2022-02-23] MEDS: DOCUSATE SODIUM 100 MG CAPSULE PO SCH ×2 (08:47→21:00)
[2022-02-23] MEDS: SODIUM CHLORIDE 0.9% 1,000 ML IV SCH ×2 (08:48→21:45)
[2022-02-23] MEDS: PANTOPRAZOLE SODIUM 40 MG/VIAL IVP SCH (08:48)
[2022-02-23 10:04] LABS: ALANINE AMINOTRANSFERASE 664 U/L (12-78); ALKALINE PHOSPHATASE 551 U/L (46-116); ANION GAP 8 mmol/L (8-16); ASPARTATE AMINOTRANSFERASE 122 U/L (15-37); BILIRUBIN,TOTAL 0.8 mg/dL (0.1-1.0); CALCIUM, TOTAL 8.5 mg/dL (8.8-10.5); CARBON DIOXIDE 25 mmol/L (22-29); CHLORIDE 108 mmol/L (98-107); CREATININE 0.62 mg/dL (0.60-1.30); GLOMERULAR FILTR. RATE CALC > 60 mL/min (>60); GLUCOSE,RANDOM 87 mg/dL (70-110); POTASSIUM 3.7 mmol/L (3.5-5.1); SODIUM SERUM 141 mmol/L (136-145); TOTAL PROTEIN, SERUM 6.2 g/dL (6.4-8.2); UREA NITROGEN, BLOOD 4 mg/dL (7-18)
[2022-02-23 11:37] VITALS: BP 92/53
[2022-02-23 16:01] VITALS: BP 93/59
[2022-02-23 20:25] VITALS: BP 105/57
[2022-02-24 04:22] VITALS: BP 93/56
[2022-02-24 06:59] LABS: ALANINE AMINOTRANSFERASE 585 U/L (12-78); ALBUMIN 3.2 g/dL (3.4-5.0); ALKALINE PHOSPHATASE 504 U/L (46-116); ANION GAP 10 mmol/L (8-16); ASPARTATE AMINOTRANSFERASE 76 U/L (15-37); BILIRUBIN,TOTAL 0.6 mg/dL (0.1-1.0); CALCIUM, TOTAL 8.7 mg/dL (8.8-10.5); CARBON DIOXIDE 26 mmol/L (22-29); CHLORIDE 106 mmol/L (98-107); CREATININE 0.62 mg/dL (0.60-1.30); GLOMERULAR FILTR. RATE CALC > 60 mL/min (>60); GLUCOSE,RANDOM 96 mg/dL (70-110); POTASSIUM 3.4 mmol/L (3.5-5.1); SODIUM SERUM 142 mmol/L (136-145); TOTAL PROTEIN, SERUM 6.8 g/dL (6.4-8.2); UREA NITROGEN, BLOOD 5 mg/dL (7-18)
[2022-02-24] MEDS: SODIUM CHLORIDE 0.9% 1,000 ML IV SCH (07:45)
[2022-02-24] MEDS: HEPARIN SODIUM,PORCINE 5,000 UNITS/ML VIAL SQ SCH ×3 (08:00→08:31)
[2022-02-24 08:06] VITALS: BP 93/52
[2022-02-24] MEDS: DOCUSATE SODIUM 100 MG CAPSULE PO SCH (08:31)
[2022-02-24] MEDS: PANTOPRAZOLE SODIUM 40 MG/VIAL IVP SCH (08:31)
[2022-02-24] MEDS ORDERED: ONDA-104 PO (10:17)
== END 2022-02-24 11:45 | disposition home or self-care (01) | DRG 282 ==
LOC: EMS 18:49 → 6N 02-21 08:32
PROVIDERS: ADMIT Internal Medicine; ATTEND Internal Medicine
DX: K85.10 Biliary acute pancreatitis without necrosis or infection (principal); K80.50 Calculus of bile duct without cholangitis or cholecystitis without obstruction; R74.8 Abnormal levels of other serum enzymes; Z20.822 Contact with and (suspected) exposure to COVID-19; Z98.891 History of uterine scar from previous surgery; Z90.49 Acquired absence of other specified parts of digestive tract
CPT/HCPCS: 74177; 74183; 78226; 80053; 82962; 83690; 85025; 87081; 93005; 99285; A9537; C9113; J1644; J2270; J2405; J7030; J7050; Q9967